=== PATIENT | female | born 1940 | race Caucasian/White ===

== ENCOUNTER 2016-09-23 21:23 | Emergency (ER) | payer OTHER, MEDICARE ==
[~2016-09-23] VITALS: Ht 157.5 cm; Wt 75.8 kg
--- NOTE | 2016-09-23 21:40 | ED CARDIAC/CP/PALPITATIONS ---
History of Present Illness General Chief Complaint: Chest Pain Stated Complaint: CHEST PAIN S/P FALL, CONGESTION Source: patient, family Exam Limitations: no limitations Vital Signs & Intake/Output Vital Signs & Intake/Output Vital Signs Date Time Temp Pulse Resp B/P B/P Pulse O2 O2 Flow FiO2 Mean Ox Delivery Rate 09/23 2204 98.2 09/235 98 Room Air 09/23 2138 98.2 58 18 155/67 95 Room Air Allergies Coded Allergies: Penicillins (UNKNOWN 09/23/16) lisinopril (UNKNOWN 09/23/16) Triage Note: PT FROM HOME C/O CP/ BACK PAIN. PT STATES I HAVE CP THAT IS SHARP AND SHOOTING AND HURTS WHEN I MOVE FOR THE PAST DAYS, I FELL 6 DAYS AGO ON MY BACK AND THE CP STARTED AFTER THAT RADIATES TO LEFT SHOULDER BLADE. PT DENIES SPB, N/V/D, NUMBNESS OR TINGLING BILATERALLY. Triage Nurses Notes Reviewed? yes Onset: Abrupt Duration: day(s): (6) Timing: recent history Location: LEFT CHEST/BACK Radiation: no radiation Activities at Onset: FALL OFF STOOL Modifying Factors: Worsens With: breathing, movement. HPI: This is a 68-year-old female history of hypertension, diabetes, coronary artery disease status post CABG who presents to the ER for chief complaint of left chest and left back pain status post fall last . She states she was on a low chair trying to reach something when she lost her balance and fell. Patient fell onto the ground on her back. She did not hit her head or loss of consciousness. She was able to get up on her own. Since that time she's been complaining of pain but hasn't been taking anything for pain [id number]. She hasn't like to take pills. No significant bruising but she got by today she should've been better. Today her granddaughter encouraged her to come to the hospital for evaluation. No shortness of breath fever chills or productive cough. Pain is worse with movement and range of motion of the shoulder. No neck pain. No low back pain or hip pain. No abdominal pain or bruising. Past History Travel History Traveled to [place] past 21 day No Medical History Any Pertinent Medical History? see below for history Cardiovascular: hypertension, hyperlipidemia Respiratory: asthma Pneumonia Vaccine: 02/15/04 Surgical History Surgical History: non-contributory Psychosocial History Who do you live with Other (see notes) What is your primary language Chinese Tobacco Use: Never used ETOH Use: denies use Family History Hx Contributory? No Review of Systems Review of Systems Constitutional: Denies: chills, fever. EENTM: Reports: no symptoms. Respiratory: Denies: cough, short of breath, sputum production. Cardiovascular: Reports: chest pain. GI: Denies: abdominal pain. Genitourinary: Denies: discharge, dysuria. Musculoskeletal: Reports: back pain. Skin: Reports: no symptoms. Neurological/Psychological: Reports: no symptoms. Hematologic/Endocrine: Denies: bruising, bleeding, polyuria, polydipsia. Immunologic/Allergic: Denies: splenectomy. All Other Systems: Reviewed and Negative Physical Exam Physical Exam General Appearance: well developed/nourished, alert, awake, anxious Head: atraumatic, normal appearance Eyes: Bilateral: normal appearance, PERRL, EOMI. Ears, Nose, Throat: normal pharynx, normal ENT inspection, hearing grossly normal Neck: normal inspection, supple, full range of motion Respiratory: normal breath sounds, no respiratory distress, LEFT CHEST WALL TENDER NO BRUISING Cardiovascular: regular rate/rhythm Peripheral Pulses: 2+ radial (R), 2+ radial (L) Gastrointestinal: normal bowel sounds, soft, non-tender Back: normal inspection, normal range of motion Extremities: normal inspection, normal capillary refill, normal range of motion, no edema Neurologic/Psych: no motor/sensory deficits, awake, alert, oriented x 3, normal gait, normal mood/affect Skin: intact, normal color, warm/dry Core Measures ACS in differential dx? No Severe Sepsis Present: No Septic Shock Present: No Progress Differential Diagnosis: pneumothorax, RIB FRACTURE, STERNAL FRACTURE, SCAPULAR FRACTURE, SHOULDER INJURY Plan of Care: Orders Procedure Date/time Status THYROID STIMULATING HORMONE 09/23 2145 Complete TROPONIN LEVEL 09/23 2145 Complete LIPID PANEL 09/23 2145 Complete FREE T4 09/23 2145 Complete COMPREHENSIVE METABOLIC PANEL 09/23 2145 Complete CBC WITHOUT DIFFERENTIAL 09/23 2145 Complete EKG 09/23 2124 Active Laboratory Tests 09/23/162144: Anion Gap 8, Estimated GFR 40 L, BUN/Creatinine Ratio 21.5, Glucose 96, Calcium 8.7, Total Bilirubin 0.5, AST 22, ALT 42, Alkaline Phosphatase 63, Troponin I < 0.01, Total Protein 5.9 L, Albumin 3.5, Globulin 2.4, Albumin/Globulin Ratio 1.5, Triglycerides 132, Cholesterol 130, LDL Cholesterol, Calc 57 L, HDL Cholesterol 47, Cholesterol/HDL Ratio 3, TSH 7.260 H, Free T4 0.97, CBC w Diff NO MAN DIFF REQ, RBC 4.50, MCV 82.8, MCH 27.9, RDW 14.0, MPV 8.3, Gran % 46.7, Lymphocytes % 41.2, Monocytes % 8.8, Eosinophils % 2.7, Basophils % 0.6, Absolute Granulocytes 3.6, Absolute Lymphocytes 3.2, Absolute Monocytes 0.7 H, Absolute Eosinophils 0.2, Absolute Basophils 0, PUBS MCHC 33.6 Diagnostic Imaging: Viewed by Me: CT Scan. Discussed w/RAD: CT Scan. Radiology Impression: PATIENT: CECILIO MOSS PRESENT AGE: 76 PATIENT ACCOUNT NO: [id number] : 38 LOCATION: [facility] ORDERING PHYSICIAN: BHASKAR VIRGEN MD SERVICE DATE: 09/23/16 EXAM TYPE: CAT - CT CHEST WO IV CONTRAST EXAMINATION: CT CHEST WITHOUT CONTRAST CLINICAL INFORMATION : Fall from chair 6 days ago. Evaluate for acute fracture. COMPARISON: CTA chest 02/26/2011. TECHNIQUE: Multidetector volumetric CT imaging of the chest was done. Axial MIP volume rendering provided. Sagittal and coronal reformatted images were obtained. DLP: 246 mGy-cm FINDINGS: AIR BOX TESTER: Symmetric pulmonary expansion. LUNGS: The imaged lungs are clear. No focal airspace consolidation is identified. The central airways are patent, without endobronchial obstructing lesions. MEDIASTINUM: Normal heart size, without significant pericardial effusion. Normal three-vessel branching of the aortic arch. Scattered atherosclerosis of the ascending thoracic aorta and minimal coronary artery calcifications. There are median sternotomy wires and surgical clips along the left lateral aspect of the mediastinum. Incidental note is made of minimal simple fluid within the anterior mediastinum. PLEURA: No pleural effusions or pneumothoraces. AXILLA: No significant axillary adenopathy. UPPER ABDOMEN: No acute findings within the upper abdomen. OSSEOUS STRUCTURES: No acute osseous abnormality. Normal alignment of the imaged thoracolumbar spine. Moderate degenerative changes of the thoracic spine at T9-T10. No acute fractures of the bilateral ribs are identified. There are no acute fractures of the bilateral scapulae. Incidental note is made of mild degenerative changes involving the bilateral glenohumeral joints. IMPRESSION: No acute findings within the chest. No acute fractures of the imaged axial or appendicular skeleton. No rib or scapular fractures are identified. DICTATED BY: VANESA BEAVERS MD DATE/TIME DICTATED:09/23/162225 RECEIVING ASSOCIATE:IRVIN DATE/TIME TRANSCRIBED:2225 CONFIDENTIAL, DO NOT COPY WITHOUT APPROPRIATE AUTHORIZATION. < Electronically signed in Other Vendor System> SIGNED BY: VANESA BEAVERS MD 09/23/162 Initial ED EKG: SINUS BRADYCARDIA AT 53 BPM t-WAVE INVERSIONS ANTERIOR LATERAL LEADS UNCHANGED Prior EKG: unchanged Departure Departure Time of Disposition: 2251 Disposition: HOME OR SELF CARE Condition: Stable Clinical Impression Primary Impression: Chest wall contusion Referrals: CAROLINE GARCIA,MATTHIAS Stauffer Additional Instructions: Take Tylenol as needed for pain. Please follow-up with her doctor in the office. Return to the ER for any changing or worsening symptoms. Take copy of your blood work and take it to Dr. Jimenez. Departure Forms: Customer Survey General Discharge Information Critical Care Note Critical Care Note Critical Care Time: non-applicable
[2016-09-23 21:54] LABS: ABSOLUTE BASOPHIL COUNT 0 /CUMM (0.0-0.2); ABSOLUTE EOSINOPHIL COUNT 0.2 /CUMM (0.0-0.7); ABSOLUTE GRANULOCYTE CT 3.6 /CUMM (1.4-6.5); ABSOLUTE LYMPH COUNT 3.2 /CUMM (1.2-3.4); ABSOLUTE MONOCYTE COUNT 0.7 /CUMM (0.10-0.60); BASOPHIL % 0.6 % (0.0-2.0); EOSINOPHIL % 2.7 % (0-5); GRANULOCYTE % 46.7 % (42.2-75.2); HEMATOCRIT 37.3 % (37-47); MEAN CORPUSCULAR HGB 27.9 PG (27.0-31.0); MEAN CORPUSCULAR HGB CONC 33.6 G/DL (33.0-37.0); MEAN CORPUSCULAR VOLUME 82.8 FL (81.0-99.0); MEAN PLATELET VOLUME 8.3 FL (7.4-10.4); PLATELET COUNT 263 /CUMM (130-400); WHITE BLOOD CELL COUNT 7.7 /CUMM (4.8-10.8)
--- NOTE | 2016-09-23 22:45 | CT SCAN REPORT ---
EXAMINATION: CT CHEST WITHOUT CONTRAST CLINICAL INFORMATION: Fall from chair 6 days ago. Evaluate for acute fracture. COMPARISON: CTA chest 02/26/2011. TECHNIQUE: Multidetector volumetric CT imaging of the chest was done. Axial MIP volume rendering provided. Sagittal and coronal reformatted images were obtained. DLP: 246 mGy-cm FINDINGS: REED MAN: Symmetric pulmonary expansion. LUNGS: The imaged lungs are clear. No focal airspace consolidation is identified. The central airways are patent, without endobronchial obstructing lesions. MEDIASTINUM: Normal heart size, without significant pericardial effusion. Normal three-vessel branching of the aortic arch. Scattered atherosclerosis of the ascending thoracic aorta and minimal coronary artery calcifications. There are median sternotomy wires and surgical clips along the left lateral aspect of the mediastinum. Incidental note is made of minimal simple fluid within the anterior mediastinum. PLEURA: No pleural effusions or pneumothoraces. AXILLA: No significant axillary adenopathy. UPPER ABDOMEN: No acute findings within the upper abdomen. OSSEOUS STRUCTURES: No acute osseous abnormality. Normal alignment of the imaged thoracolumbar spine. Moderate degenerative changes of the thoracic spine at T9-T10. No acute fractures of the bilateral ribs are identified. There are no acute fractures of the bilateral scapulae. Incidental note is made of mild degenerative changes involving the bilateral glenohumeral joints. IMPRESSION: No acute findings within the chest. No acute fractures of the imaged axial or appendicular skeleton. No rib or scapular fractures are identified.
[2016-09-23 23:00] VITALS: BP 157/67
== END 2016-09-23 23:00 ==
LOC: ERH 21:23
PROVIDERS: Emergency Medicine
DX: S20.212A Contusion of left front wall of thorax, initial encounter (principal); M54.9 Dorsalgia, unspecified; R07.9 Chest pain, unspecified; I10 Essential (primary) hypertension; W19.XXXA Unspecified fall, initial encounter; Y92.9 Unspecified place or not applicable; Y93.9 Activity, unspecified
CPT/HCPCS: 93005; 93010; 96374; J0131